=== PATIENT | female | born 1985 | race Caucasian/White ===

== ENCOUNTER 2018-12-22 23:16 | Emergency (ER) | payer OTHER ==
[~2018-12-22] VITALS: Ht 172.7 cm; Wt 79.4 kg
== END 2018-12-23 01:27 | disposition home or self-care (01) ==
LOC: ED 23:16
DX: S01.01XA Laceration without foreign body of scalp, initial encounter (principal); W18.39XA Other fall on same level, initial encounter; Y93.89 Activity, other specified; Y92.89 Other specified places as the place of occurrence of the external cause; Y99.8 Other external cause status
CPT/HCPCS: J2001

== ENCOUNTER 2018-12-30 10:45 | Emergency (ER) | payer OTHER ==
[~2018-12-30] VITALS: Ht 172.7 cm; Wt 80.7 kg
[2018-12-30 10:49] VITALS: Ht 172.7 cm; Wt 80.7 kg
[2018-12-30 11:21] VITALS: BP 130/80
== END 2018-12-30 11:21 | disposition home or self-care (01) ==
LOC: ED 10:45
DX: S01.01XD Laceration without foreign body of scalp, subsequent encounter (principal); X58.XXXD Exposure to other specified factors, subsequent encounter